=== PATIENT | male | born 1970 | race African-American/Black ===

== ENCOUNTER 2023-11-19 18:01 | Inpatient (IN) | payer OTHER ==
[~2023-11-19] VITALS: Ht 180.3 cm; Wt 108.9 kg
[~2023-11-19 18:01] MED LIST: FOLI-43 MT; MULT-470 PO; PROT20 MT; THIA100T72 MT
[2023-11-19 18:47] LABS: BASOPHILS % 0.9 % (0.0-2.0); EOSINOPHILS % 0.3 % (0.0-5.0); HEMATOCRIT. 40.8 % (42.0-52.0); LYMPHOCYTES % 9.5 % (20.0-50.0); MEAN CORPUSCULAR HEMOGLOBIN 30.6 pg (28.0-32.0); MEAN CORPUSCULAR HGB CONC 34.4 g/dL (31.0-37.0); MEAN CORPUSCULAR VOLUME 88.9 fL (80.0-94.0); MEAN PLATELET VOLUME 8.8 fl (7.4-10.4); MONOCYTES % 6.8 % (2.0-8.0); NEUTROPHILS % 82.5 % (40.0-76.0); PLATELET 317 x1000/uL (130-400); RED BLOOD CELL COUNT 4.59 mill/uL (4.7-6.1); RED CELL DISTRIBUTION WIDTH 14.3 % (11.6-14.6); WHITE BLOOD COUNT 11.2 x1000/uL (4.5-11.0)
[2023-11-19 18:54] LABS: CARBON DIOXIDE 27 mEq/L (21-32); CHLORIDE 101 mEq/L (98-107); SODIUM 138 mEq/L (136-145)
[2023-11-19 18:55] LABS: CALCIUM 9.9 mg/dL (8.7-10.4)
[2023-11-19 18:59] LABS: GLUCOSE 134 mg/dL (70-105)
[2023-11-19 19:00] LABS: UREA NITROGEN BLOOD 12 mg/dL (9-23)
[2023-11-19 19:01] LABS: CREATININE 1.5 mg/dL (0.6-1.3); ETHANOL BLOOD < 10 mg/dL (<10)
[2023-11-19 19:02] LABS: ACETAMINOPHEN < 2 ug/mL (10-30)
[2023-11-19] MEDS: DIAZEPAM 5 MG/ML 2ML SYR IM ONE (19:47)
[2023-11-19 20:39] LABS: CREATINE KINASE 353 IU/L (46-171)
[2023-11-19] MEDS: LACTATED RINGERS 1,000 ML IV SCH (23:44)
[2023-11-20] MEDS: DIPHENHYDRAMINE 50MG/ML VIAL IM NR (00:31)
[2023-11-20] MEDS: LORAZEPAM 2MG/ML INJ IM NR (00:31)
[2023-11-20 11:01] VITALS: BP 93/68; PULSE 93; RESP 20; TEMP 98.1
[2023-11-20] MEDS ORDERED: ONDANSETRON HCL 4MG/2ML INJ IV PRN (11:30)
[2023-11-20] MEDS ORDERED: ACETAMINOPHEN 325MG TABLET PO PRN (11:30)
[2023-11-20 12:00] VITALS: BP 130/82; PULSE 96; RESP 20; TEMP 97.9
[2023-11-20] MEDS ORDERED: LORAZEPAM 2MG/ML INJ IV PRN (12:30)
[2023-11-20] MEDS: LORAZEPAM 2MG/ML INJ IM PRN (13:38)
[2023-11-20 20:00] VITALS: BP_SYST 113; BP_SYST 129; BP_DIAS 37; BP_DIAS 97; PULSE 63; PULSE 77; RESP 18; RESP 19; TEMP 97.8
[2023-11-21] VITALS: BP 139/79; PULSE 96; RESP 18; TEMP 98
[2023-11-21 08:00] VITALS: BP 144/62; PULSE 88; RESP 18; TEMP 98
[2023-11-21] MEDS ORDERED: HALOPERIDOL LACTATE 5MG/ML VIAL IM NR (11:30)
[2023-11-21 12:00] VITALS: BP 138/74; PULSE 75; RESP 20; TEMP 97.6
[2023-11-21] MEDS: RISPERIDONE 0.5MG TABLET PO SCH (12:33)
[2023-11-21 18:00] VITALS: BP 124/72; PULSE 80; RESP 20; TEMP 98.4
[2023-11-21 20:00] VITALS: BP 115/85; PULSE 100; RESP 18; TEMP 97.5
[2023-11-22 08:00] VITALS: BP 113/66; PULSE 84; RESP 20; TEMP 98
[2023-11-22 12:00] VITALS: BP 109/53; PULSE 79; RESP 18; TEMP 97.4
[2023-11-22 16:00] VITALS: BP 128/88; PULSE 77; RESP 18; TEMP 98
[2023-11-22 20:00] VITALS: BP 101/79; PULSE 65; RESP 18; TEMP 97
[2023-11-23 04:00] VITALS: BP 108/81; PULSE 72; RESP 18; TEMP 97.1
[2023-11-23 08:00] VITALS: BP 123/72; PULSE 88; RESP 20; TEMP 97
[2023-11-23 12:26] VITALS: BP 122/72; PULSE 78; RESP 20; TEMP 97.9
[2023-11-23 16:00] VITALS: BP 132/87; PULSE 100; RESP 20; TEMP 97
[2023-11-23 20:00] VITALS: BP 130/78; PULSE 102; RESP 18; TEMP 98.1
[2023-11-24 08:00] VITALS: BP 129/78; PULSE 84; RESP 18; TEMP 97.5
[2023-11-24] MEDS ORDERED: RISP05 PO (11:28)
[2023-11-24 12:00] VITALS: BP 108/67; PULSE 84; RESP 20; TEMP 98.4
[2023-11-24 16:00] VITALS: BP 118/85; PULSE 79; RESP 18; TEMP 96.7
[2023-11-24 20:00] VITALS: BP 136/90; PULSE 85; RESP 20; TEMP 97.1
[2023-11-25 04:00] VITALS: BP 114/60; PULSE 80; RESP 16; TEMP 98
[2023-11-25 08:00] VITALS: BP 105/51; PULSE 81; RESP 18; TEMP 97.6
[2023-11-25 12:00] VITALS: BP 115/66; PULSE 88; RESP 18; TEMP 98.6
[2023-11-25 13:34] VITALS: BP 115/66; PULSE 88; TEMP 98.6; O2SAT 99
== END 2023-11-25 14:00 | disposition home or self-care (01) | DRG 812 ==
LOC: ER 18:01 → 5WST 22:14 → EDBEDREQTM 22:18 → EDBEDREQ 22:18 → 6WST 11-20 08:20
PROVIDERS: ADMIT Internal Medicine; ATTEND Internal Medicine
DX: T43.651A Poisoning by methamphetamines accidental (unintentional), initial encounter (principal); N17.0 Acute kidney failure with tubular necrosis; F20.9 Schizophrenia, unspecified; F19.10 Other psychoactive substance abuse, uncomplicated; F15.10 Other stimulant abuse, uncomplicated; F17.210 Nicotine dependence, cigarettes, uncomplicated; F31.9 Bipolar disorder, unspecified; Z59.01 Sheltered homelessness; X58.XXXA Exposure to other specified factors, initial encounter; Y93.89 Activity, other specified; Y92.89 Other specified places as the place of occurrence of the external cause; Y99.8 Other external cause status
CPT/HCPCS: 36415; 80048; 80307; 80320; 80329; 82550; 85025; 93005; 99285; J1200; J2060; G0480